=== PATIENT | female | born 1970 | race Hispanic/Latino ===

== ENCOUNTER 2021-10-27 14:28 | Outpatient (CLI) | payer SELFPAY | END 2021-10-27 14:29 | disposition home or self-care (01) | LOC: MADRAD 14:28 | PROVIDERS: ATTEND Family Medicine | DX: M25.562 Pain in left knee (principal); M54.42 Lumbago with sciatica, left side; G89.29 Other chronic pain; M47.817 Spondylosis without myelopathy or radiculopathy, lumbosacral region; M43.17 Spondylolisthesis, lumbosacral region; M17.12 Unilateral primary osteoarthritis, left knee | CPT/HCPCS: 72100 ==